=== PATIENT | male | born 1990 | race African-American/Black ===

== ENCOUNTER 2021-07-26 17:09 | Emergency (ER) | payer OTHER ==
[~2021-07-26] VITALS: Ht 188 cm; Wt 96.3 kg
[2021-07-26 17:12] VITALS: BP 140/71
[2021-07-26] MEDS ORDERED: CYCL10TA19 PO (17:45)
[2021-07-26] MEDS ORDERED: NAPR-514 PO (17:45)
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
== END 2021-07-26 18:00 | disposition home or self-care (01) ==
LOC: ER 17:09
DX: S80.11XA Contusion of right lower leg, initial encounter (principal); M54.50 Low back pain, unspecified; Z88.0 Allergy status to penicillin; V49.59XA Passenger injured in collision with other motor vehicles in traffic accident, initial encounter; Y93.89 Activity, other specified; Y92.488 Other paved roadways as the place of occurrence of the external cause; Y99.8 Other external cause status
CPT/HCPCS: 99283